=== PATIENT | female | born 1990 | race African-American/Black ===

== ENCOUNTER 2023-03-21 10:37 | Emergency (ER) | payer SELFPAY ==
[~2023-03-21] VITALS: Ht 165.1 cm; Wt 63.6 kg
[2023-03-21 10:47] VITALS: BP 100/72; PULSE 73; RESP 18; TEMP 98.6; O2SAT 99
[2023-03-21 12:01] LABS: CLARITY URINE CLOUDY (CLEAR); COLOR URINE YELLOW (YELLOW); GLUCOSE URINE NEGATIVE (NEGATIVE); KETONES URINE NEGATIVE (NEGATIVE); LEUKOCYTE ESTERASE URINE 2+ (NEGATIVE); NITRITE URINE NEGATIVE (NEGATIVE); OCCULT BLOOD URINE 1+ (NEGATIVE); PROTEIN URINE 1+ (NEGATIVE); SPECIFIC GRAVITY URINE 1.021 (1.005-1.030); UROBILINOGEN URINE 0.2 E.U./dL (0.2-1.0)
[2023-03-21] MEDS ORDERED: CEPH500C2 MT (12:32)
[2023-03-21 13:51] LABS: BACTERIA URINE 4+; RBC URINE 0-2 /hpf (0-2); SQUAMOUS EPITHELIAL CELL URINE FEW /lpf (RARE/1+); WBC URINE TNTC /hpf (0-2); YEAST URINE NONE SEEN
== END 2023-03-21 13:18 | disposition home or self-care (01) ==
LOC: ER 10:37
DX: N30.90 Cystitis, unspecified without hematuria (principal)
CPT/HCPCS: 81003; 81025; 87077; 87186; 99283

== ENCOUNTER 2023-03-31 09:29 | Emergency (ER) | payer SELFPAY ==
[~2023-03-31] VITALS: Ht 165.1 cm; Wt 63.0 kg
[~2023-03-31 09:29] MED LIST: CEPH500C2 MT
[2023-03-31 09:36] VITALS: O2SAT 100
[2023-03-31] MEDS ORDERED: TERB30CR8 TP (11:04)
[2023-03-31 12:08] VITALS: BP 140/89; PULSE 68; RESP 19; TEMP 98.2
[2023-04-02 04:09] LABS: HSV TYPE 1 SPECIFIC AB IGG 36.9 index (0.00-0.90); HSV TYPE 2 SPECIFIC AB IGG 8.06 index (0.00-0.90)
== END 2023-03-31 12:11 | disposition home or self-care (01) ==
LOC: ER 09:29
DX: R21 Rash and other nonspecific skin eruption (principal)
CPT/HCPCS: 81025; 86695; 86696; 99283

== ENCOUNTER 2023-04-29 13:57 | Emergency (ER) | payer SELFPAY ==
[~2023-04-29] VITALS: Ht 154.9 cm; Wt 66.0 kg
[~2023-04-29 13:57] MED LIST changes: +TERB30CR8 TP
[2023-04-29 14:01] VITALS: BP 111/64; PULSE 76; RESP 16; TEMP 98.9; O2SAT 100
[2023-04-29] MEDS ORDERED: [UNRECOGNIZED DRUG - CODE] TP (15:29)
== END 2023-04-29 16:40 | disposition home or self-care (01) ==
LOC: ER 13:57
DX: B37.89 Other sites of candidiasis (principal)
CPT/HCPCS: 87210; 99284; Z7610